=== PATIENT | female | born 1945 | race Two or more races ===

== ENCOUNTER 2021-07-17 07:38 | Outpatient (CLI) | payer OTHER | END 2021-07-17 07:47 | disposition home or self-care (01) | LOC: TOM 07:38 | DX: K46.9 Unspecified abdominal hernia without obstruction or gangrene (principal); R10.32 Left lower quadrant pain ==

== ENCOUNTER 2021-12-11 10:53 | Outpatient (CLI) | payer OTHER | END 2021-12-11 11:06 | disposition home or self-care (01) | LOC: MRI 10:53 | DX: M54.9 Dorsalgia, unspecified (principal) | CPT/HCPCS: 72148 ==